=== PATIENT | female | born 1995 | race Asian ===

== ENCOUNTER → 2020-11-20 12:50 | Outpatient (CLI) | payer OTHER, MEDICAID, SELFPAY ==
--- NOTE | 2020-11-20 12:51 | DI.US.S_ITS ---
PROCEDURE: US OB <= 14 WEEKS FETUS INDICATIONS: DATING OUTSIDE/PRIOR DATING DATA: Last menstrual period (LMP): 09/23/2020 LMP-based estimated date of delivery (VIRAJ): 06/30/2021. First dating scan (date and location): 11/20/2020. Estimated date of delivery (VIRAJ) from first dating scan: 07/03/2021. TECHNIQUE: Real-time scanning was performed of the fetus and maternal pelvic organs, with image documentation. Endovaginal scanning was also performed to better visualize the fetus and maternal ovaries. COMPARISON: None. FINDINGS: Embryo: [place]-rump length measures 1.5 cm corresponding to 7 weeks 6 days. Heart rate: 176 Measurement variability in dating: +/- 4 weeks by LMP, +/- 7 days by mean sac diameter (use before 6 weeks gestation if crown-rump length not able to be measured), +/- 5 days by crown-rump length (up to 8 weeks 6 days gestation), +/- 7 days by crown-rump length (up to 13 weeks 6 days gestation). Maternal organs: Left ovary not visualized. Right corpus luteal cyst. Posterior myometrial contraction versus intramural fibroid measuring up to 3.9 cm. IMPRESSION: 1. 7 week 6 day single living IUP. 2. Posterior intramural fibroid versus myometrial contraction which can be reassessed on follow-up examination. Dictated by: Kareem Guadarrama [facility] Interpreted: Nas Millan MD on 11/20/2020 at 13:28 Transcribed by: TAMRA on 11/20/2020 at 13:32 Approved by: Nas Millan M.D. on 11/20/2020 at 13:43
== END ==
PROVIDERS: PCP Registered Nurse; Referring Provider Obstetrics & Gynecology; Visit Provider Obstetrics & Gynecology
DX: Z36.87 Encounter for antenatal screening for uncertain dates (principal); Z3A.01 Less than 8 weeks gestation of pregnancy
CPT/HCPCS: 76801; 76817

== ENCOUNTER → 2020-12-13 14:02 | Outpatient (CLI) | payer OTHER, MEDICAID, SELFPAY ==
[2020-12-13 14:24] LABS: Add Manual Diff / Slide Review NO; Basophils Absolute Auto 100 /uL (0-100); Basophils Percent Auto 0.6 % (0-2); Eosinophils Absolute Auto 100 /uL (0-450); Hematocrit 41.6 % (36-46); Lymphocytes Absolute Auto 2700 /uL (1100-4500); Mean Corpuscular HGB Conc 33.6 % (30-36); Mean Corpuscular Hemoglobin 29.4 PG (26-34); Mean Corpuscular Volume 87.5 fL (80-100); Monocytes Absolute Auto 800 /uL (0-900); Monocytes Percent Auto 5.6 % (3-14); Neutrophils Absolute Auto 10000 /uL (1500-7000); Neutrophils Percent Auto 72.8 % (50-75); Platelet Count 308 X10^3/uL (150-400); Red Blood Cell Count 4.75 X10^6/uL (4.0-5.2); Red Cell Distribution Width 13.2 % (11.6-14.8); White Blood Cell Count 13.7 X10^3/uL (4.5-11.0)
[2020-12-13 15:54] LABS: Appearance Urine UA CLEAR; Bilirubin Urine UA NEGATIVE (NEGATIVE); Color Urine UA YELLOW; Glucose Urine UA TRACE g/dL (Negative); Ketones Urine UA NEGATIVE (NEGATIVE); Leukocyte Esterase Urine UA NEGATIVE (NEGATIVE); Nitrite Urine UA NEGATIVE (Negative); Occult Blood Urine UA NEGATIVE (Negative); Protein Urine UA NEGATIVE (Negative); Specific Gravity Urine UA <=1.005 (1.000-1.035); Urobilinogen Urine UA 0.2 E.U./dL (0.2)
[2020-12-14 05:53] LABS: RPR Screen Non Reactive (Non Reactive)
[2020-12-14 08:15] LABS: Varicella IgG Antibody <135 index (Immune >165)
[2020-12-16 16:28] LABS: Hepatitis B Surface Antigen NEGATIVE s/c (NEGATIVE)
[2020-12-16 16:48] LABS: HIV 1 & 2 Ab/Ag 4th Gen Combo NEGATIVE (NEGATIVE); Hep C Virus Ab w/Reflex Quant NEGATIVE s/c (NEGATIVE)
== END ==
PROVIDERS: PCP Registered Nurse; Referring Provider Obstetrics & Gynecology; Visit Provider Obstetrics & Gynecology
DX: Z34.81 Encounter for supervision of other normal pregnancy, first trimester (principal)
CPT/HCPCS: 36415; 80055; 81003; 86787; 86803; 86850; 86900; 86901; 87086; 87389

== ENCOUNTER → 2021-01-16 13:50 | Outpatient (CLI) | payer OTHER, MEDICAID, SELFPAY ==
[2021-01-18 22:32] LABS: AFP, Serum 26.8 ng/mL (.); Estriol, Free 1.23 ng/mL (.); Inhibin A, Dimeric 137.15 pg/mL (.); Inhibin A, MoM 0.97 (.); Maternal Ethnicity Other (.); Maternal Weight 182 lbs (.); Number of Fetuses No (.); OSBR Risk 1 IN 10000 (.); Results Report (.); Test Results *Screen Negative* (.); hCG, MoM 1.22 (.); hCG, Serum 40856 mIU/mL (.)
== END ==
PROVIDERS: PCP Registered Nurse; Referring Provider Obstetrics & Gynecology; Visit Provider Obstetrics & Gynecology
DX: Z34.82 Encounter for supervision of other normal pregnancy, second trimester (principal); Z3A.16 16 weeks gestation of pregnancy
CPT/HCPCS: 36415; 82105; 82677; 84702; 86336

== ENCOUNTER → 2021-02-10 15:17 | Outpatient (CLI) | payer OTHER, MEDICAID, SELFPAY | PROVIDERS: PCP Registered Nurse; Referring Provider Obstetrics & Gynecology; Visit Provider Obstetrics & Gynecology | DX: Z34.82 Encounter for supervision of other normal pregnancy, second trimester (principal); Z3A.20 20 weeks gestation of pregnancy; Z53.8 Procedure and treatment not carried out for other reasons ==

== ENCOUNTER → 2021-02-17 13:31 | Outpatient (CLI) | payer OTHER, MEDICAID, SELFPAY ==
[2021-02-17 16:32] LABS: Urine N gonorrhoeae NOT DETECTED
[2021-02-17 16:33] LABS: Urine Chlamydia NOT DETECTED
== END ==
PROVIDERS: PCP Registered Nurse; Visit Provider Obstetrics & Gynecology
DX: Z34.82 Encounter for supervision of other normal pregnancy, second trimester (principal); Z3A.21 21 weeks gestation of pregnancy
CPT/HCPCS: 87491; 87591

== ENCOUNTER → 2021-02-20 14:13 | Outpatient (CLI) | payer OTHER, MEDICAID, SELFPAY ==
--- NOTE | 2021-02-20 14:14 | DI.US.S_ITS ---
PROCEDURE: US OB >= 14 WEEKS FETUS INDICATIONS: ANATOMY SCAN OUTSIDE/PRIOR DATING DATA: Last menstrual period (LMP): 09/23/2020. LMP-based estimated date of delivery (VIRAJ): 06/30/2021. First dating scan (date and location): 11/20/2020. Estimated date of delivery (VIRAJ) from first dating scan: 07/03/2021. The calculations are made using the ultrasound VIRAJ of 07/03/2021. TECHNIQUE: Real-time scanning was performed of the fetus, with image documentation and biometric measurements. Endovaginal scanning: Not performed. COMPARISON: [facility], US, OB >= 14 WEEKS FETUS, 01/16/2021, 13:33. FINDINGS: General: A single living intrauterine gestation is present. Presentation: Variable. Placenta: Placental position is anterior, without previa. Amniotic fluid index: 18.7 cm, normal range is 5-24 cm. Single deepest vertical pocket is 6.2 cm. heart rate: 145 beats per minute. Maternal cervical canal: 4.9 cm long. Normal lower limit is 2.5 cm. biometrics: Biparietal diameter: 5 cm, 21 weeks 2 days Head circumference: 18.7 cm, 21 weeks 0 days Abdominal circumference: 16.9 cm, 21 weeks 6 days Femur length: 3.8 cm, 22 weeks 1 day Clinically estimated gestational age: 21 weeks 0 days Composite gestational age from present scan: 21 weeks 4 days Estimated weight and percentile: 454 g, 86 percentile Anatomic survey: Neuro: Ventricles are non-dilated at less than 10 mm. Cisterna magna is normal at 3-11 mm. Cerebellum is normal in size and morphology. Nuchal skin fold: Normal at less than 6 mm between 14-21 weeks gestational age. Face: Nose and lips, facial profile are normal. Spine: No evidence for spina bifida. Heart: 4-chambered heart is present, with normal ventricular outflow tracts. Diaphragm: Diaphragm is intact. Stomach: Left-sided stomach is present. Kidneys: No hydronephrosis. Normal is less than 5 mm in 2nd trimester, less than 7 mm in 3rd trimester. Cord: 3-vessel cord has orthotopic insertion. Bladder: Normal in size. Extremities: All 4 extremities identified. IMPRESSION: 1. Mann living intrauterine at 21 weeks 4 days based on today's ultrasound. This is concordant with the prior ultrasound. There is expected interval growth. 2. Normal placenta and amniotic fluid. 3. Normal and complete anatomic survey. We strive to produce accurate, complete, and clear reports of imaging services. To assist us in improving patient care, this report was composed using standard report templates and voice recognition software. Therefore, it may contain abnormal punctuation, insertions and/or omissions. Occasional wrong-word or sound-alike substitutions may occur. Though we review the report and make efforts to correct it, we do recommend that the report be read carefully in proper context to recognize any text inaccuracies. Dictated by: Oscar Gonzales M.D. on 02/20/2021 at 16:46 Approved by: Oscar Gonzales M.D. on 02/20/2021 at 16:51
== END ==
PROVIDERS: PCP Registered Nurse; Referring Provider Obstetrics & Gynecology; Visit Provider Obstetrics & Gynecology
DX: Z34.82 Encounter for supervision of other normal pregnancy, second trimester (principal); Z3A.21 21 weeks gestation of pregnancy
CPT/HCPCS: 76811

== ENCOUNTER → 2021-03-24 13:14 | Outpatient (CLI) | payer OTHER, MEDICAID, SELFPAY ==
[2021-03-24 15:20] LABS: Hematocrit 35.4 % (36-46); Hemoglobin 12.2 g/dL (12.0-16.0)
[2021-03-24 15:45] LABS: GTT (PREG) 1 Hour PP 50gm Dose 123 mg/dL (76-139)
== END ==
PROVIDERS: PCP Registered Nurse; Referring Provider Obstetrics & Gynecology; Visit Provider Obstetrics & Gynecology
DX: Z34.82 Encounter for supervision of other normal pregnancy, second trimester (principal); Z3A.25 25 weeks gestation of pregnancy
CPT/HCPCS: 36415; 82950; 85014; 85018

== ENCOUNTER → 2021-06-10 15:52 | Outpatient (CLI) | payer OTHER, MEDICAID, SELFPAY ==
[2021-06-11 13:14] LABS: Strep Grp B PCR NEG for Grp B Strep
== END ==
PROVIDERS: PCP Registered Nurse; Visit Provider Obstetrics & Gynecology
DX: Z34.83 Encounter for supervision of other normal pregnancy, third trimester (principal); Z3A.37 37 weeks gestation of pregnancy
CPT/HCPCS: 87653

== ENCOUNTER 2021-06-30 14:26 | Outpatient (CLI) | payer OTHER, MEDICAID, SELFPAY | END 2021-06-30 15:10 | disposition home or self-care (01) | LOC: LABOR 14:37 → OB 07-01 15:15 | PROVIDERS: PCP Registered Nurse; Referring Provider Obstetrics & Gynecology; Visit Provider Obstetrics & Gynecology | DX: O48.0 Post-term pregnancy (principal); Z3A.40 40 weeks gestation of pregnancy | CPT/HCPCS: 59025; G0378; G0379 ==

== ENCOUNTER 2021-07-03 19:00 | Inpatient (IN) | payer OTHER, MEDICAID, SELFPAY ==
[2021-07-03 20:56] LABS: Add Manual Diff / Slide Review NO; Basophils Absolute Auto 100 /uL (0-100); Basophils Percent Auto 0.6 % (0-2); Eosinophils Absolute Auto 100 /uL (0-450); Eosinophils Percent Auto 0.6 % (2-4); Hematocrit 38.2 % (36-46); Lymphocytes Absolute Auto 2900 /uL (1100-4500); Lymphocytes Percent Auto 18.7 % (25-40); Mean Corpuscular HGB Conc 34.1 % (30-36); Mean Corpuscular Hemoglobin 29.7 PG (26-34); Monocytes Absolute Auto 1300 /uL (0-900); Monocytes Percent Auto 8.2 % (3-14); Neutrophils Absolute Auto 11300 /uL (1500-7000); Neutrophils Percent Auto 71.9 % (50-75); Platelet Count 227 X10^3/uL (150-400); Red Blood Cell Count 4.39 X10^6/uL (4.0-5.2); Red Cell Distribution Width 13.1 % (11.6-14.8); White Blood Cell Count 15.7 X10^3/uL (4.5-11.0)
[2021-07-03] MEDS: DINOPROSTONE VAG (CERVIDIL) 10 MG VAG (20:57)
[2021-07-03 21:08] LABS: COVID19 -Nasal RAPID Negative (Negative)
[2021-07-04 07:09] VITALS: BP 122/75
[2021-07-04] MEDS: LACTATED RINGERS 1,000 ML 100 ML IV (13:20)
[2021-07-04] MEDS: OXYTOCIN PREMIX 30 UNIT/500 ML PLAST..BAG IV (13:26)
--- NOTE | 2021-07-04 15:40 | P.HPOB_ITS ---
OB HPI Date/Time Date of admission: 07/03/21 Date Patient Seen: 07/04/21 Time Patient Seen: 07:40 History of Present Condition Chief complaint: induction VIRAJ Calculator Estimated Delivery Date Method Current WG Current Estimate 06/30/21 LMP (Certain) 40w 4d Other Estimates 07/03/21 Ultrasound #1 40w 1d Estimated Gestational Age (weeks): 40+4 : 2 Para: 1 care: good care, initiated at week # (11), number of visits (11) and pounds weight gain (35) Dating criteria OB: LMP confirmed by 1st trimester US Ultrasounds: normal 1st trimester US and normal mid trimester US Obstetrical complications: none Medical complications OB: none Indications Indication for induction OB: post dates Preadmission Labs Last OB Lab Results: Blood Type O Positive 07/03/21 20:51 07/03/21 Antibody Screen Negative 07/03/21 20:51 07/03/21 Hematocrit 38.2 % (36-46) 07/03/21 20:51 07/03/21 Hemoglobin 13.0 g/dL (12.0-16.0) 07/03/21 20:51 07/03/21 Hepatitis B Surface Antigen Negative s/c (NEGATIVE) 12/13/20 14:05 12/13/20 Hepatitis C Antibody Negative s/c (NEGATIVE) 12/13/20 14:05 12/13/20 Rubella Antibody 23.0 IU/mL (>15) 12/13/20 14:05 12/13/20 Varicella-Zoster IgG Antibody <135 index (Immune >165) L 12/13/20 14:05 12/13/20 Glucose 1 Hour 123 mg/dL (76-139) 03/24/21 14:52 03/24/21 Group B Streptococcus (PCR) Neg for grp b strep 06/10/21 15:52 06/10/21 -: Chlamydia screen: negative, Gonorrhea screen: negative and Urine: negative -: PAP smear: Normal Genetic Screens: Quad screen: Normal External Labs -: Urine: negative Prior (ies) Past Pregnancies Del. Date GA/Weeks Labor Lgth Wt Sex Route Outcome Anesthesia Place Delv Breastfeed Preg Comp Name 12/11/12 39.6 37 7 lb 10 oz Female vaginal live - full te rm epidural [facility] 9 mos, initial latch issues. Favio Ca lles Evaluation Evaluation Baseline heart rate: 145 Variability: Moderate (11-25) monitor accelerations: Present Monitor Decelerations: Absent Contraction Frequency (minutes): 5 Uterine Contraction Intensity: Mild Status: Category l Dilation (cm): 2 Effacement (%): 75 station: -3 Position of cervix: posterior Consistency: medium [facility] Medical History (Updated 12/15/20 @ 10:28 by Olivia Blum MD) Migraine (~2008) Viral upper respiratory infection (~2016) Surgical History (Updated 12/04/20 @ 14:30 by Kiah Ge RN) [place] teeth extracted (~2017) Family History (Updated 12/04/20 @ 14:36 by Kiah Ge RN) Mother No problems noted. Father Diabetes mellitus Grandmother No problems noted. Grandfather Cancer Grandmother Breast cancer Colon cancer Grandfather No problems noted. Social History marital status: number of children: 1 household members: spouse, family (Grandmother. ) and children lives independently: Yes caregiver/support person: No housing: house pets and animals: No education level: college (BS Kinesiology) occupational status: employed ([employer] in [place]. ) current occupational exposures/hazards: No special suleman needs: No seatbelt use: always do you feel safe at home: Yes Smoking Status: Never smoker second hand exposure: No alcohol intake: former (Pre-: one drink every few weeks. ) substance use type: does not use during the past year weight has: remained stable well-balanced diet: daily or most days daily servings fruits/ve-4 caffeine: Yes Type(s) of exercise: walking (Walks all day at work 0730-noon. 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. ) frequency: daily Meds Home Medications and Allergies Home Medications Medication Instructions Recorded Confirmed Type prenat.vits,radha,oaj-nona-efcfn 1 tab PO DAILY 12/04/20 07/03/21 History pantoprazole 40 mg tablet,delayed See Rx Instructions .ROUTE 04/15/21 07/03/21 Rx release .COMPLEX #30 tab Allergies Allergy/AdvReac Type Severity Reaction Status Date / Time No Known Allergies Allergy Uncoded 06/30/21 13:53 OB Exam Narrative Exam Narrative: Generally: No acute distress Lungs: Clear to auscultation bilaterally Cardiovascular: Regular rate and rhythm Fundal height: 40 cm Estimated weight: 8 lb Extremities: Trace edema, 1+ DTRs Objective Labs Result Diagrams: 07/03/21 20:51 Labs: Laboratory Results - last 24 hr 07/03/21 07/03/21 07/03/21 20:51 20:51 20:51 WBC 15.7 H RBC 4.39 Hgb 13.0 Hct 38.2 MCV 87.0 MCH 29.7 MCHC 34.1 RDW 13.1 Plt Count 227 Neut % (Auto) 71.9 Lymph % (Auto) 18.7 L [place] % (Auto) 8.2 Eos % (Auto) 0.6 L Baso % (Auto) 0.6 Neut # (Auto) 06332 H Lymph # (Auto) 2900 [place] # (Auto) 1300 H Eos # (Auto) 100 Baso # (Auto) 100 SARS-CoV-2 (PCR) Negative Blood Type O Positive Antibody Screen Negative Assessment and Plan Assessment and Plan Assessment and Plan narrative: Assessment: 25-year-old 2 para 1 at 40-,4/7 weeks gestation status post Cervidil last night Plan: Cervidil to be removed at 9:30 a.m. Pitocin as needed Epidural as necessary Artificial rupture of membranes when able Expected management to spontaneous vaginal delivery Time Spent with Patient Total time spent with greater than 50% in coordination of care (as documented) at patient's floor/unit and/or counseling patient:: 15-24 minutes
--- NOTE | 2021-07-04 15:48 | PM.OBPNLAB ---
Date/Time Date Patient Seen: 07/04/21 Time Patient Seen: 14:30 Pain Control Pain control: tolerating well Pelvic Exam Dilation (cm): 3 Effacement (%): 80 station: -1 Amniotic membrane status: Intact Contractions Contractions on admission: none Monitor mode: External Pitocin rate (mU/min): 6 Contraction frequency (min): 3 Contraction duration (min): 1 Contraction intensity: Mild Status status: Category l Heart Rate Baseline: 150 Monitor Accelerations: Present Monitor Decelerations: Absent Monitor Variability: Moderate Assessment and Plan Assessment: induction ongoing Plan: other (AROM with copious clear amniotic fluid)
--- NOTE | 2021-07-04 19:33 | PM.OBPNLAB ---
Date/Time Date Patient Seen: 07/04/21 Time Patient Seen: 19:33 Pain Control Pain control: epidural Pelvic Exam Dilation (cm): 4 Effacement (%): 100 station: -1 Amniotic membrane status: Ruptured Contractions Contractions on admission: none Monitor mode: External Pitocin rate (mU/min): 3 Contraction frequency (min): 3 Contraction duration (min): 1 Contraction pattern: Regular Contraction intensity: Strong/Firm Status status: Category l Heart Rate Baseline: 125 Monitor Accelerations: Present Monitor Decelerations: Absent Monitor Variability: Moderate Assessment and Plan Assessment: induction ongoing Plan: continuous present management Comments: Side to side Peanut ball
--- NOTE | 2021-07-04 21:49 | PM.OBPRVD ---
Events: Labor Induction Labor & Delivery Delivery date: 07/04/21 Intrapartal Events: None Cervical ripening method: per Cervidil protocol Induction method: per pitocin protocol Delivery augmentation: rupture of membranes Delivery monitor: external FHT and external uterine Route of delivery: Episiotomy description: None L&D Laceration Description: Superficial Delivery repair: chromic Estimated blood loss (mL): 100 Anesthesia Type: Epidural Complications: None Narrative: Patient complete and pushed with 4 contractions. At 9:27 p.m., a live female infant delivered spontaneously in the BRAEDEN presentation, over an intact perineum. No nuchal cord. The remainder of the body delivered without difficulty and was placed on mom's abdomen. The cord was double clamped and cut after it stopped pulsing. Cord bloods were obtained. Pitocin was given in the IV fluids. The placenta delivered intact with a three-vessel cord at 9:33 p.m.. Fundus was massaged to firm. Bilateral superficial lacerations were repaired with 4-0 chromic in the usual fashion. Hemostasis was achieved. Estimated blood loss 100 cc. . Epidural analgesia. Mom and stable to recovery. [place] Baby 1: Infant gender: Female Presentation: vertex Position: Right Occiput Anterior Placenta delivery description: Spontaneous Cord Vessel Description: 3 Vessels and Clamped/Cut score (1 min): 8 score (5 min): 9 weight: 8 lb 6 oz Plan for aftercare: Routine care
[2021-07-04] MEDS: ACETAMINOPHEN 325 MG TABLET 650 MG PO (22:19)
[2021-07-04] MEDS: IBUPROFEN 600 MG TABLET PO (22:19)
[2021-07-05] MEDS: ACETAMINOPHEN 325 MG TABLET 650 MG PO ×2 (04:21→14:59)
[2021-07-05] MEDS: IBUPROFEN 600 MG TABLET PO (04:21)
[2021-07-05 07:07] LABS: Hematocrit 38.4 % (36-46); Hemoglobin 12.8 g/dL (12.0-16.0)
[2021-07-05] MEDS: PRENATAL VIT,CALC/IRON/FOLIC 1 TABLET 1 TAB PO (09:28)
[2021-07-05] MEDS: DOCUSATE 100 MG CAPSULE PO (09:28)
--- NOTE | 2021-07-05 12:55 | P.DS_ITS ---
Discharge Providers Provider Date of admission: 07/03/21 19:00 Discharge Date: 07/05/21 Primary care physician: SHIVA Ceballos Consults: 07/05/21 21:47 Consult to Garment Examiner Routine Comment: Discharge provider: Olivia Blum MD Summary Hospital Course Date Patient Seen: 07/05/21 Time Patient Seen: 12:55 Diagnoses: 40+ 4 weeks gestation Cervidil cervical ripening Pitocin induction of labor Artificial rupture of membranes Spontaneous vaginal delivery Superficial laceration repair Hospital Course: Patient is a 25-year-old 2 para 2 who presented on July 03, 2021 for Cervidil cervical ripening. On the morning of July 04, 2021 the Cervidil was removed. The patient was 2 cm dilated. Due to staffing the Pitocin was not started for a few hours. Patient progressed to 4 cm dilated. Artificial rupture membranes was performed. An epidural was placed for pain management. She progressed to complete dilation and had a spontaneous vaginal delivery without complication. She had 2 superficial lacerations which were repaired. Her course was unremarkable. is going well. Bleeding is tapering. She has been able to void. She is discharged to home. Peripartum Data Delivery Method: Natural Vaginal Laceration Description: Superficial Episiotomy description: None Procedures: Cervidil cervical ripening Pitocin induction of labor Artificial rupture of membranes Spontaneous vaginal delivery Superficial laceration and repair complications: none [place] 1: Gender: Female Disposition of : home Status at Discharge Cognitive/behavioral status at discharge: oriented Functional status at discharge: independent ambulation Overall status at discharge: patient is progressing back to baseline Time Spent with Patient Time attestation: Total time spent providing and/or coordinating discharge services: Time spent: Less than 30 minutes Objective Labs Result Diagrams: 07/05/21 06:57 Labs: Laboratory Results - last 24 hr 07/05/21 06:57 Hgb 12.8 Hct 38.4 Exam Narrative Exam Narrative: Generally: Patient walking around in room, no acute distress Fundus: Firm at U -1 Extremities: Trace edema, negative Homans Discharge Plan Discharge Plan Patient Disposition: Home Provider Discharge Comment: Call with fever, chills, or bleeding vaginally more than a pad in an hour Discharge orders & Medications Prescriptions: Continued prenat.vits,radha,icq-oubo-nlesg Tablet 1 tab PO DAILY 0RF Discontinued pantoprazole 40 mg tablet,delayed release (DR/EC) See Rx Instructions .ROUTE .COMPLEX Qty: 30 3RF Dose Instruction: TAKE 1 TABLET BY MOUTH DAILY Rx Instructions: TAKE 1 TABLET BY MOUTH DAILY Follow up/Referrals: Olivia Blum MD [Physician] - 6 Weeks Diet/Activity/Treatments Diet: Regular Activity: Nothing in the vagina for 6 weeks Skin/Wound/Dressing Care Report to your healthcare provider any signs of infection, such as:: chills, fever, increased pain and unusual drainage Visit Report/Discharge Packet Instructions: DI for Labor and Delivery, Vaginal Discharge Data Primary Care Provider: Sg Hansen
[2021-07-05 17:30] VITALS: BP 106/67; PULSE 95; RESP 18; TEMP 36.4
== END 2021-07-05 18:12 | disposition home or self-care (01) | DRG 560 ==
PROVIDERS: Admitting Provider Obstetrics & Gynecology; PCP Registered Nurse; Referring Provider Obstetrics & Gynecology; Visit Provider Obstetrics & Gynecology
DX: O48.0 Post-term pregnancy (principal); Z3A.40 40 weeks gestation of pregnancy; Z37.0 Single live birth; O70.0 First degree perineal laceration during delivery; Z20.822 Contact with and (suspected) exposure to COVID-19
CPT/HCPCS: 01967; 36415; 59050; 59200; 59409; 85014; 85018; 85025; 86850; 86900; 86901; 87635; C9803; G0379; J2590